=== PATIENT | male | born 1975 | race African-American/Black ===

== ENCOUNTER 2017-01-21 10:33 | Emergency (ER) | payer SELFPAY ==
[~2017-01-21] VITALS: Ht 185.4 cm; Wt 140.0 kg
[2017-01-21] MEDS ORDERED: HYDR-523 PO (10:37)
[2017-01-21] MEDS ORDERED: LIDOCAINE HCL 1% 20ML VIAL (Pyxis) INJ MC ONE (11:00)
[2017-01-21] MEDS ORDERED: TETANUS, DIPHTHERIA, PERTUSSIS VAC/PF 0.5ML (>7YR OLD) IM ONE (11:00)
[2017-01-21] MEDS ORDERED: BACITRACIN ZINC OINT UDPKT TOP ONE (11:00)
[2017-01-21] MEDS ORDERED: CEFTRIAXONE SODIUM 250 MG/VIAL IM ONE (11:00)
[2017-01-21 13:24] VITALS: BP 141/91
== END 2017-01-21 13:25 | disposition home or self-care (01) ==
LOC: ER 11:18
DX: S81.851A Open bite, right lower leg, initial encounter (principal); W54.0XXA Bitten by dog, initial encounter; Y93.89 Activity, other specified; Y92.410 Unspecified street and highway as the place of occurrence of the external cause
CPT/HCPCS: 73590; 90471; 90715; 96372; 99284; A4217; J0696; J3490; Z7610